=== PATIENT | female | born 1960 | race Caucasian/White ===

== ENCOUNTER 2018-12-29 12:48 | Emergency (ER) | payer OTHER ==
[2018-12-29 12:51] VITALS: O2SAT 99
[2018-12-29 12:52] VITALS: BMI 28.3
[2018-12-29 13:27] VITALS: RESP 18; TEMP 97.6
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
--- NOTE | 2018-12-29 15:04 | RAD ---
Date of service: 12/29/2018 PROCEDURE: Cervical Spine Radiographs. HISTORY: Pain. COMPARISON: None available. TECHNIQUE: 3 views obtained. FINDINGS: BONES: There is straightening of the cervical spine with loss of normal cervical lordosis. Vertebral alignment is normal. Vertebral height is maintained. There is no acute fracture or spondylolisthesis. The craniocervical junction is normal. There is moderate degenerative osteoarthrosis at the atlantoaxial joint. DISC SPACES: There is mild multilevel degenerative disc disease with anterior spurring, reduced disc heights and multilevel facet arthropathy with multilevel moderate to severe right neural foraminal narrowing, worse at C5-6. The left neural foramina are patent. SOFT TISSUES: Normal. No prevertebral soft tissue swelling. OTHER FINDINGS: None. IMPRESSION: No acute fracture or spondylolisthesis. Multilevel degenerative disc disease, worse at C5-6 with multilevel right cited moderate to severe neural foraminal narrowing. Straightening of the cervical spine may be positional or related to muscle spasm. Moderate degenerative osteoarthrosis in the atlantoaxial joint.
[2018-12-29 15:27] VITALS: BP 157/95; PULSE 61
== END 2018-12-29 15:49 | disposition home or self-care (01) ==
LOC: H.ER 12:48 → EDBD 12:48 → H.ER 15:49
DX: M62.838 Other muscle spasm (principal); M50.322 Other cervical disc degeneration at C5-C6 level; I10 Essential (primary) hypertension; V43.52XA Car driver injured in collision with other type car in traffic accident, initial encounter